=== PATIENT | female | born 1985 | race Caucasian/White ===

== ENCOUNTER 2023-05-09 17:08 | Emergency (ER) | payer BC, SELFPAY ==
[2023-05-09] MEDS ORDERED: Silver Nitrate Application 1 EACH ONE (17:33)
[2023-05-09] MEDS ORDERED: Bupivacaine 0.5% 10 ML VIAL ONE (17:33)
[2023-05-09] MEDS ORDERED: Bacitracin 1 PK ONE (17:53)
== END 2023-05-09 18:06 | disposition home or self-care (01) ==
LOC: BURERS 17:08
DX: L60.0 Ingrowing nail (principal); F17.290 Nicotine dependence, other tobacco product, uncomplicated
CPT/HCPCS: 11750; J3490